=== PATIENT | male | born 1995 | race Caucasian/White ===

== ENCOUNTER 2017-02-06 17:44 | Emergency (ER) | payer OTHER ==
[~2017-02-06] VITALS: Ht 182.9 cm; Wt 77.1 kg
[~2017-02-06 17:44] MED LIST: MEDROLDOSEPACK PO; [UNRECOGNIZED DRUG - REMARK]
[2017-02-06] MEDS ORDERED: IBUPROFEN 800800 M1 PO (19:41)
[2017-02-06 20:29] VITALS: BP 134/82
== END 2017-02-06 20:30 | disposition home or self-care (01) ==
LOC: ER 17:44
DX: S61.211A Laceration without foreign body of left index finger without damage to nail, initial encounter (principal); Z88.8 Allergy status to other drugs, medicaments and biological substances; W26.8XXA Contact with other sharp object(s), not elsewhere classified, initial encounter; Y93.89 Activity, other specified; Y92.89 Other specified places as the place of occurrence of the external cause; Y99.8 Other external cause status

== ENCOUNTER 2017-07-02 14:20 | Inpatient (IN) | payer OTHER ==
[2017-07-02] VITALS (17 sets, daily range): BP systolic 100–153; BP diastolic 39–99
[~2017-07-02] VITALS: Ht 190.5 cm; Wt 88.5 kg
--- NOTE | ~2017-07-02 | HC ---
[facility] [place] [address] CONSULTATION Name: JORJE FLORES Room #: 440-P ADM IN M.R.#: [id number] Admission: 07/02/17 Attend Phys: Ovidio Epstein MD Discharge: Date of : 89 Report #: [id number] THIS REPORT FOR: //name// CC: Ovidio Pryor HISTORY: The patient was evaluated and was found to have a positive Monospot, although CT abdomen and pelvis showed a large right lower quadrant collection, favored a perforated appendix with abscess. He underwent CT abscess drainage, culture now with growth of Escherichia coli that was generally susceptible with exception of individual resistance to ampicillin, has been on piperacillin/tazobactam. At this point, he denies any pain. He states he is eating well. No fevers. No pulmonary complaints. ALLERGIES: None known. CURRENT MEDICATIONS: Include Zosyn, p.r.n. analgesics and antiemetics. PAST MEDICAL HISTORY: Eczema. SOCIAL HISTORY: Nonsmoker, no ethanol. FAMILY HISTORY: Noncontributory. REVIEW OF SYSTEMS: As above. PHYSICAL EXAMINATION: GENERAL: He is pleasant, alert, cooperative, appropriate. Did not appear to be particularly distress, somewhat thin, although I think he is adequately nourished. VITAL SIGNS: Temperature 97, pulse 56, respirations 18, blood pressure 118/62. SKIN: Warm, dry, no rashes. HEENT: Unremarkable. NECK: Supple. LUNGS: Clear. HEART: Regular. ABDOMEN: Soft, really no peritoneal signs, there is a drain in place in the right lower quadrant. GENITOURINARY: Deferred. RECTAL: Deferred. LABORATORY DATA: Blood cultures sterile thus far. Abscess culture with growth of Escherichia coli. Electrolytes: Sodium 138, potassium 4.3, chloride 103, bicarbonate is 26, BUN and creatinine 10 and 0.9, estimated GFR of 105. CBC: White count of 8.8, H and H 12.4 and 35.3, platelets of 221. Influenza antigen was negative. Lactic acid 1.4. Urinalysis unremarkable. [facility] [address] [place] [address] CONSULTATION Name: JORJE FLORES Room #: 440-P [facility] IN ..#: [id number] Admission: 07/02/17 Attend Phys: Ovidio Epstein MD Discharge: Date of : 89 Report #: [id number] ASSESSMENT AND RECOMMENDATIONS: Perforated appendix with abscess/peritonitis. We will continue Zosyn in the course of the next day or so, plan to transition to oral antibiotics, Augmentin seems like a reasonable choice with the plan to complete perhaps another 10 days. Note that he is likely to have the drain removed prior to discharge. <ELECTRONICALLY SIGNED> By: Kyle Ramirez MD 07/05/17 0746 [id number] Kyle Ramirez MD /nt
[~2017-07-02 14:20] MED LIST changes: +IBUPROFEN 800800 M1 PO
[2017-07-02] MEDS ORDERED: BENADRYL25 MG PO (14:45)
[2017-07-02] MEDS ORDERED: ASPIRIN325 PO (14:45)
[2017-07-02 15:02] LABS: URINE BILIRUBIN NEGATIVE (Negative); URINE BLOOD NEGATIVE (Negative); URINE CLARITY CLEAR; URINE COLOR YELLOW; URINE GLUCOSE-RANDOM* NEGATIVE (Negative); URINE KETONES NEGATIVE (Negative); URINE LEUKOCYTES NEGATIVE (Negative); URINE NITRITE NEGATIVE (Negative); URINE PROTEIN (DIPSTICK) TRACE (Negative); URINE SPECIFIC GRAVITY 1.025 (1.005-1.035)
[2017-07-02 15:06] LABS: ABSOLUTE NEUTROPHILS 8.9 thou/uL (1.4-8.2); BASOPHILS 0.4 % (0.0-2.0); EOSINOPHILS 0.6 % (0.0-3.0); HEMATOCRIT 40.6 % (42.0-52.0); HEMOGLOBIN 14.1 gm/dL (14.0-18.0); LYMPHOCYTES 10.9 % (24.0-44.0); MCH 28.9 pg (26.0-34.0); MCHC 34.8 g/dL (28.0-37.0); MCV 83.1 fL (80.0-100.0); MONOCYTES 11.3 % (1.0-8.0); PLATELET COUNT 220 thou/uL (150-400); POLYS 76.8 % (36.0-66.0); RBC 4.88 mil/uL (4.50-6.00); RDW 12.4 % (10.5-14.5); WBC 11.6 thou/uL (4.0-11.0)
[2017-07-02 15:08] LABS: CALCIUM 9.4 mg/dL (8.5-10.1); CREATININE 1.1 mg/dL (0.7-1.3); POTASSIUM 3.8 mmol/L (3.5-5.1)
[2017-07-02 15:14] LABS: ALBUMIN 3.7 g/dL (3.4-5.0); TOTAL BILIRUBIN 0.7 mg/dL (<0.1-1.0)
[2017-07-03 00:15] VITALS: BP 131/60
[2017-07-03 04:30] VITALS: BP 127/59
[2017-07-03 05:37] LABS: HEMATOCRIT 35.3 % (42.0-52.0); HEMOGLOBIN 12.4 gm/dL (14.0-18.0); MCH 29.4 pg (26.0-34.0); MCV 83.8 fL (80.0-100.0); RBC 4.21 mil/uL (4.50-6.00); RDW 12.5 % (10.5-14.5); WBC 8.8 thou/uL (4.0-11.0)
[2017-07-03 05:53] LABS: CALCIUM 9.2 mg/dL (8.5-10.1); CREATININE 0.9 mg/dL (0.7-1.3); POTASSIUM 4.3 mmol/L (3.5-5.1)
[2017-07-03 07:30] VITALS: BP 126/67
[2017-07-03 16:40] VITALS: BP 112/54
[2017-07-03 19:48] VITALS: BP 134/62
[2017-07-04 03:52] VITALS: BP 124/65
[2017-07-04 09:20] VITALS: BP 120/63
[2017-07-04 16:19] VITALS: BP 118/62
[2017-07-04 19:47] VITALS: BP 125/60
[2017-07-05 04:57] VITALS: BP 118/58
[2017-07-05 05:53] LABS: HEMATOCRIT 34.9 % (42.0-52.0); HEMOGLOBIN 12.1 gm/dL (14.0-18.0); MCH 28.9 pg (26.0-34.0); MCHC 34.7 g/dL (28.0-37.0); MCV 83.3 fL (80.0-100.0); RBC 4.19 mil/uL (4.50-6.00); RDW 12.5 % (10.5-14.5); WBC 5.3 thou/uL (4.0-11.0)
[2017-07-05 06:13] LABS: CALCIUM 9.4 mg/dL (8.5-10.1); CREATININE 0.9 mg/dL (0.7-1.3); POTASSIUM 3.9 mmol/L (3.5-5.1)
[2017-07-05 06:56] VITALS: BP 112/63
[2017-07-05] MEDS ORDERED: AUGMENTIN 875-1 EACH PO (11:32)
[2017-07-05 14:32] VITALS: BP 112/63
[2017-07-05 14:35] VITALS: BP 112/63
== END 2017-07-05 15:30 | disposition home or self-care (01) | DRG 373 ==
LOC: ER 14:20 → EROBS 16:30 → 4S 16:30
PROVIDERS: Hospitalist; Physician Assistant; Surgery
PROC: 0D9J30Z Drainage of Appendix with Drainage Device, Percutaneous Approach (ICD-10-PCS; principal; 2017-07-03)
DX: K35.3 Acute appendicitis with localized peritonitis (principal); E86.0 Dehydration; D72.829 Elevated white blood cell count, unspecified; Z88.8 Allergy status to other drugs, medicaments and biological substances; Z91.09 Other allergy status, other than to drugs and biological substances; Z79.82 Long term (current) use of aspirin; Z79.899 Other long term (current) drug therapy
CPT/HCPCS: 10102

== ENCOUNTER → 2017-07-16 | Outpatient (CLI) | payer OTHER ==
[~2017-07-16] MED LIST changes: +ASPIRIN325 PO; +AUGMENTIN 875-1 EACH PO; +BENADRYL25 MG PO; +NORCO 5-325 TA1 EACH PO; +ZOFRAN4 MG PO
== END ==
LOC: CAT 07:48
DX: K36 Other appendicitis (principal)

== ENCOUNTER 2017-09-11 05:13 | Day surgery (SDC) | payer OTHER ==
[~2017-09-11] VITALS: Ht 190.5 cm; Wt 94.3 kg
--- NOTE | ~2017-09-11 | S ---
[facility] [place] [address] SURGICAL PATH RPT PROCEDURE Name: JORJE FLORES Room #: DEP [facility]#: [id number] Admission: 09/11/17 Date of : 89 Discharge: 09/11/17 Report #: [id number] Path Case #: [id number] PATHOLOGY REPORT COLLECTION DATE: 09/11/2017 RECEIVED DATE: 09/11/2017 SUBMITTING PHYS: Dr. Keenan Blue, DO OTHER PHYS: Dr. Marcello Pryor SPECIMEN(S) RECEIVED: A.Appendix * * * * * * * * * * * * FINAL DIAGNOSIS: Appendix, appendectomy: - Marked acute appendicitis along with marked serositis. - Proximal margin unremarkable and without acute inflammation. (IUV:pit; 09/14/2017) PATHOLOGIST: Naty Apdoaca M.D. REPORT ELECTRONICALLY SIGNED BY: Naty Apodaca M.D. DATE/TIME: 09/14/2017 14:46 * * * * * * * * * * * * GROSS PATHOLOGY: Received in formalin labeled "Jorje Flores appendix," is an appendix measuring 4.7 cm in length and 0.7 cm in diameter with a moderate amount of attached mesoappendix. The serosal surface is pink-hand and smooth in appearance. Sectioning reveals a pinpoint to dilated lumen with a single fecalith present measuring 1.2 cm in length by 0.4 cm in diameter near the distal tip. [employer]ants [employer] sections are submitted in cassette A1. (CAA; 09/11/2017) CLINICAL HISTORY: Acute appendicitis INITIAL CPT CODE(S): A; 75660 Professional services performed by [facility] at [facility] [address], [place] [address] Technical services performed by [facility] at [address] [place] [address], [address] [address]. [facility] [address] [place] [address] SURGICAL PATH RPT PROCEDURE Name: JORJE FLORES Room #: [facility].#: [id number] Admission: 09/11/17 Date of : 89 Discharge: 09/11/17 Report #: [id number] Path Case #: [id number] [facility] [address] [address] PHONE: [phone] DIRECTOR: Chad Schaffer M.D. * * * END OF REPORT * * *
[~2017-09-11 05:13] MED LIST changes: -NORCO 5-325 TA1 EACH PO; -ZOFRAN4 MG PO
[2017-09-11 07:14] VITALS: BP 136/83
[2017-09-11] MEDS ORDERED: ZOFRAN4 MG PO (08:09)
[2017-09-11] MEDS ORDERED: NORCO 5-325 TA1 EACH PO (08:09)
[2017-09-11 08:40] VITALS: BP 136/83
== END 2017-09-11 09:20 | disposition home or self-care (01) ==
LOC: OR 05:13 → TBA 05:13 → OR 09:20
DX: K35.3 Acute appendicitis with localized peritonitis (principal); Z98.890 Other specified postprocedural states; Z79.891 Long term (current) use of opiate analgesic
CPT/HCPCS: 50010; 50101; 50249; 50411; 50555; 50558; 50739; 50740; 50962; 51975; 52265; 53310; 54022; 54118; 56525; 56526; 62110; 62900; 70005